=== PATIENT | male | born 1990 | race Caucasian/White ===

== ENCOUNTER 2022-03-14 10:38 | Emergency (ER) | payer BC, SELFPAY ==
[2022-03-14 10:47] VITALS: BP 124/75; PULSE 71; RESP 16; TEMP 36.9; O2SAT 100
--- NOTE | 2022-03-14 11:10 | ED.GENADULT ---
HPI - General Adult General Chief complaint: Upper Respiratory Infection Stated complaint: work note, covid symptoms Time Seen by Provider: 03/14/22 11:10 Source: patient, RN notes reviewed and old records reviewed Mode of arrival: ambulatory Limitations: no limitations History of Present Illness HPI narrative: 32year old male who presets to express care with complaints of lingering cough post COVID and need for release to return to work Patient reports that he had COVID on March 01 and he has quarantined as per CDC guidelines and has been fever free since the 06 of March. Patient states that he has some nasal congestion and this lingering cough and need release so he can return to work. Patient denies any shortness of breath, wheezing, fevers, sore throat or any ear pain. Patient reports that he has been taking some DayQuil and NyQuil for his symptoms. MD complaint: needs note to return to work, had COVID March 01 has lingering cough Onset (ago): day(s) (March 01) Treatments prior to arrival: other (DayQuil and NyQuil) Related Data Home Medications Medication Instructions Recorded Confirmed ocrelizumab 30 mg/mL intravenous 30 mg IV [id number] 03/14/22 03/14/22 solution (Ocrevus) Allergies Allergy/AdvReac Type Severity Reaction Status Date / Time red dye Allergy Unknown Verified 03/14/22 10:50 Review of Systems Review of Systems: CONSTITUTIONAL: Denies fever, chills, or sweats. EYES: Denies visual changes, redness, or discharge. ENT: Positive for rhinorrhea, congestion, no sore throat, or otalgia. CARDIOVASCULAR: Denies chest pain, palpitations, or edema. RESPIRATORY: Positive for dry cough denies dyspnea. GASTROINTESTINAL: Denies abdominal pain, nausea, vomiting, or diarrhea. GENITOURINARY: Denies dysuria or hematuria. SKIN: Denies rash or itching. MUSCULOSKELETAL: Denies back pain, joint pain, present myalgia. NEUROLOGIC: Denies headache, numbness, or weakness. PSYCHIATRIC: Denies anxiety or depression. 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 There is no relevant family history pertinent to the presenting complaint Exam Narrative: GENERAL: Well-appearing, well-nourished, and in no acute distress. HEAD: Normocephalic, atraumatic. EYES: PERRLA and EOMI. ENT: Nares with membranes red, clear rhinorrhea no epistaxis. Mucous membranes moist.TM's normal with good light reflex, throat with some mild erythema no lesions or exudates noted, tonsils not enlarged or swollen, post nasal drainage noted NECK: Supple. no lymphadenopathy CHEST: Clear to auscultation. No respiratory distress.persistent cough,SAO2 100% on room air, no tachypnea or wheezing noted HEART: Regular rate and rhythm. No murmur heard. Normal peripheral pulses. ABDOMEN: Soft, nontender, nondistended, normal active bowel sounds. EXTREMITIES: Normal range of motion. No edema. SKIN: Warm, dry, no rash. NEURO: No focal deficits. Alert and oriented x3. Course Course Level of Care: Express Care Visit Vital Signs Vital signs: Vital Signs Temperature 36.9 C 03/14/22 10:47 Pulse Rate 71 03/14/22 10:47 Respiratory Rate 16 03/14/22 10:47 Blood Pressure 124/75 03/14/22 10:47 Pulse Oximetry 100 03/14/22 10:47 Temperature 36.9 C 03/14/22 10:47 Pulse Rate 71 03/14/22 10:47 R
== END 2022-03-14 11:36 | disposition home or self-care (01) ==
PROVIDERS: Emergency Provider Registered Nurse
DX: J06.9 Acute upper respiratory infection, unspecified (principal); R05.2 Subacute cough; G35 Multiple sclerosis
CPT/HCPCS: 99213; G0463

== ENCOUNTER 2023-01-18 08:46 | Emergency (ER) | payer BC, SELFPAY ==
--- NOTE | 2023-01-18 08:51 | ED.URI ---
HPI - URI/Sore Throat General Chief Complaint: Upper Respiratory Infection Stated Complaint: Cough for a year & a half Time Seen by Provider: 01/18/23 09:58 Source: patient and RN notes reviewed Mode of arrival: ambulatory Limitations: no limitations History of Present Illness HPI Narrative: 32-year-old male with history of multiple sclerosis presents with concern for cough, sinus congestion, sinus pain. He reports for year and a half he has had on and off problems with cough and sinuses. Reports this flare has been about 2 months. He reports he has been taking multiple [id number] medications without relief of his symptoms. He reports his sinus pain worsens with cough. He reports he has an albuterol inhaler from a previous illness that he has been using about twice a week. He reports it helps for several hours. He reports feeling warm, has not measured a fever. MD elicited complaint: cough, nasal congestion and sinus pain Related Data Home Medications Medication Instructions Recorded Confirmed ocrelizumab 30 mg/mL intravenous 30 mg IV [id number] 03/14/22 01/18/23 solution (Ocrevus) Allergies Allergy/AdvReac Type Severity Reaction Status Date / Time red dye Allergy Intermediate Hives Verified 01/18/23 10:04 Review of Systems Review of Systems: CONSTITUTIONAL: Denies malaise, chills,, or fever. Reports sweats EYES: Denies visual changes, redness, or discharge. ENT: Reports rhinorrhea, congestion, sinus pain. Reports denies otalgia and sore throat. CARDIOVASCULAR: Denies chest pain, palpitations, or edema. RESPIRATORY: Reports persistent cough. Denies dyspnea. GASTROINTESTINAL: Denies abdominal pain, nausea, vomiting, diarrhea SKIN: Denies rash or itching. MUSCULOSKELETAL: Denies myalgia. NEUROLOGIC: Denies headache. 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 There is no relevant family history pertinent to the presenting complaint Exam Narrative: GENERAL: Well-appearing, well-nourished, and in no acute distress. HEAD: Normocephalic EYES: PERRLA, conjunctivae clear ENT: Nares clear, turbinates edematous and erythematous, sinus tenderness. Mucous membranes moist. TM pearly souza with dull light reflex bilaterally; no tragal tenderness. Oropharynx not erythematous without lesions. Tonsils not enlarged and without exudate, no drooling, no hoarseness, no trismus, uvula midline. NECK: Supple. No lymphadenopathy CHEST: Scattered wheeze otherwise clear to auscultation, breath sounds equal. No rhonchi, rales, or stridor. No respiratory distress, speaks in full sentences. HEART: Regular rate and rhythm. No murmur heard. SKIN: Warm, dry, no rash. NEURO: Alert and oriented x3. PSYCH: Normal mood and affect Course Course Emergency Course: Patient advised he is allergic to red dye 5. Which is commonly found food and not medication, he is not allergic to red dye 10 which is found medication. He reports he has taken Augmentin without problems. He reports he has intermittently had to be on prednisone for his lungs well he is taking the Ocrevus, he understands increased risk of infection. Patient is aware of diagnosis, understands and agrees to treatment plan. Anticipatory guidance give
[2023-01-18 09:01] VITALS: BP 123/65; PULSE 103; RESP 16; TEMP 37.4; O2SAT 97
[2023-01-18] MEDS: IPRATROPIUM BR 0.02% INH SOLN 0.5 MG/2.5 ML VIAL INHALATION (10:19)
[2023-01-18] MEDS: ALBUTEROL SULFATE NEB 2.5 MG/3 ML INH INHALATION (10:19)
== END 2023-01-18 11:04 | disposition home or self-care (01) ==
PROVIDERS: Emergency Provider Nurse Practitioner; PCP Family Medicine
DX: J32.9 Chronic sinusitis, unspecified (principal); J40 Bronchitis, not specified as acute or chronic; G35 Multiple sclerosis
CPT/HCPCS: 94640; 99213; G0463

== ENCOUNTER 2023-04-20 08:05 | Outpatient (CLI) | payer BC, SELFPAY ==
--- NOTE | ~2023-04-20 | CT_ITS ---
CT Scan of the Chest without Contrast: Clinical Indication: Cough Technique: Contiguous sections were acquired throughout the chest without intravenous contrast. Dose reduction technique was used on this scan by utilizing automated exposure control and iterative recon struction technique. The dose-length product (DLP) was 335.12 mGy-cm. Findings: There is no evidence of any significant mediastinal, hilar or axillary lymphadenopathy. The mediastin al soft tissues appear normal. There is no evidence of pleural or pericardial effusion. 4 mm left lower lobe pulmonary nodule noted (axial image 79). Lungs are otherwise clear. Images through the upper abdomen reveal no abnormalities. Impression: 4 mm left lower lobe pulmonary nodule. According to Fleischner Society criteria, for a low-risk patie nt, no further follow-up required. For a high-risk patient, consider 12 month follow-up CT. Reviewed, dictated and finalized at [facility]. Impression: 4 mm left lower lobe pulmonary nodule. According to Fleischner Society criteria , for a low-risk patient, no further follow-up required. For a high-risk patien t, consider 12 month follow-up CT.
--- NOTE | 2023-04-20 17:12 | WPDPFTINT ---
PFT Procedure Performed PFT Procedure Performed Spirometry with Pre/Post Bronchodilator Plethysmography (Lung Vol) Diffusing Cap (DLCO) Flow Vol Loop PFT Interpretation DOS: 04/20/2023 REQUESTING: Tory Mota PA-C REASON FOR TESTING: Cough PULMONARY FUNCTION TESTS Results are reliable and reproducible. Spirometry: [ ] Lung volumes: [ ] Diffusion: DLCO [ ] Flow volume loop: [ ] IMPRESSION: [ ] Leila Marroquin MD
--- NOTE | 2023-04-21 12:34 | WPDPFTINT ---
PFT Procedure Performed PFT Procedure Performed Spirometry with Pre/Post Bronchodilator Plethysmography (Lung Vol) Diffusing Cap (DLCO) Flow Vol Loop PFT Interpretation DOS: 04/20/2023 REQUESTING: Tory Mota PA-C REASON FOR TESTING: Cough PULMONARY FUNCTION TESTS Results are reliable and reproducible. Spirometry: Pre bronchodilator FEV1 is 4.16 L, 98%, normal. Pre bronchodilator FVC is 5.23 L, 101% predicted, normal. FEV1/FVC ratio 79%, normal. After bronchodilator administration there is a 3% increase in the FEV1, 4.27 L which is 101%, not statistically significant. There is a 4% increase in the FVC, 5.43 L, 101% predicted, normal. Lung volumes: Total lung capacity is 6.7 L, 100% predicted, normal. Residual volume is 1.31 L, 80%, normal. RV/ TLC is 20%, normal. Diffusion: DLCO is 28.6, 84%, normal. DLCO/VA is 4.18, 82%, normal. Flow volume loop: There was one normal loop; one repeat efforts, the inspiratory limb became progressively smaller. IMPRESSION: This study shows normal spirometry without response to bronchodilator, normal lung volumes, normal diffusion. The inspiratory limb on the FVL became smaller on repeat efforts. Clinically correlation recommended. Leila Marroquin MD
== END 2023-04-20 08:06 | disposition home or self-care (01) ==
PROVIDERS: PCP Family Medicine; Visit Provider Physician Assistant
DX: R05.9 Cough, unspecified (principal); R91.1 Solitary pulmonary nodule
CPT/HCPCS: 71250; 94060; 94726; 94729

== ENCOUNTER 2024-10-01 15:12 | Emergency (ER) | payer OTHER, SELFPAY ==
--- NOTE | 2024-10-01 15:27 | ED.URI ---
HPI - URI/Sore Throat General Chief Complaint: Skin/Abscess/Foreign Body Stated Complaint: rt earache, rash Time Seen by Provider: 10/01/24 15:15 Source: patient Mode of arrival: ambulatory Limitations: no limitations History of Present Illness HPI Narrative: Patient is a 34-year-old male that presents with 3-4 days of right ear pain, decreased hearing along with rash right side of head this started last night. Patient reports it is mildly itchy but does not say that it is painful. Rash is not open or oozing. Patient has history of MS and did have chickenpox as a child. Related Data Home Medications ?Medication ?Instructions ?Recorded ?Confirmed ?Last Taken ?Type cholecalciferol (vitamin D3) 125 125 mcg PO DAILY 06/26/23 07/21/23 Unknown History mcg (5,000 unit) capsule Allergies Allergy/AdvReac Type Severity Reaction Status Date / Time red dye Allergy Intermediate Hives Verified 10/01/24 15:42 Review of Systems Review of Systems: All systems reviewed & are unremarkable except as noted in HPI and below Constitutional: Constitutional: Denies body ache(s), Denies chills, Denies fatigue, Denies fever(s), Denies headache(s), Denies malaise and Denies weakness Eyes: Eyes: Denies blurry vision, Denies irritation and Denies loss of vision ENT: Reports otalgia, Denies headache(s), Denies nasal discharge, Denies sinus pain and Denies sore throat Cardiovascular: Cardiovascular: Denies chest pain, Denies irregular heart rhythm and Denies dyspnea Respiratory: Respiratory: Denies dyspnea Gastrointestinal: Gastrointestinal: Denies abdominal pain, Denies melena, Denies hematochezia, Denies diarrhea, Denies nausea and Denies vomiting Musculoskeletal: Musculoskeletal: Denies back pain, Denies myalgias and Denies arthralgias Integumentary/Breasts: Skin/Breast: Reports pruritus and Reports rash Neurologic: Denies headache(s), Denies loss of vision and Denies weakness Psychiatric: Psychiatric: Reports no additional psychiatric complaints Endocrine: Endocrine: Denies fatigue PMFSH Past Medical History Medical History 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, left resolved after starting treatment for MS Multiple sclerosis Surgical History Surgical History No history of previous surgery Family History Family History Grandparent Heart disease 2 quadruple bypass surgeries Hypertension Other Hypertension Mother Enlarged RV (right ventricle) Grandparent Hypertension Father Hypertension Social History Social History Smoking status: Never smoker Alcohol intake: current Alcohol use details: rare social Substance use: never Substance use type: does not use Lack of Transportation: No Lack of Food: Never True Current Housing: I Have Housing Concerned About Future Housing: No Difficulty Paying Gas/Electric Bills: No Difficulty Paying for Meds: No Currently Unemployed: No Education: Bachelor's Degree Living arrangements: with family Occupation/Education: occupation Additional occupation/education comments: District executive for [employer] Gender identity (if verbalized by the patient): Male Comments At time of signature, agree with nursing past medical, surgical, social and family history. There is no relevant family history pertinent to the presenting complaint. Exam Const: General: cooperative, healthy appearing, comfortable, no acute distress and well nourished Nutritional Appearance: well nourished Orientation/consciousness: patient oriented x3 Limitations: no limitations HENMT: Head: normal to inspection, normocephalic, atraumatic and scalp lesion right parietal vesicle (multiple grouped vesicles in different stages. Some small and red, others 1 cm in size with raised surface and start of blister appearance) Head images:  1. area of grouped vesicles Ears: hearing grossly normal bilaterally, external ears normal, TM's normal bilaterally, EAC's normal and no periauricular adenopathy Face/Nose/Sinus: Normal external nose present, normal facial exam and face symmetric Face and sinus: normal facial exam and face symmetric Mouth: Yes lip normal Eyes: General: appearance normal, both eyes and all related structures Alignment and Position: alignment normal and position normal Periorbital: periorbital findings normal Eyelids: eyelids normal Pupils: Equal, round and reactive pupils present EOM: EOMs intact bilaterally Neck: Neck: normal visual inspection, full ROM and supple Chest: Chest palpation & inspection: normal inspection of the chest Resp: Effort & Inspection: normal respiratory effort and able to speak in complete sentences Auscultation: clear to auscultation bilaterally Cardio: Rate: regular rate Rhythm: regular rhythm Heart sounds: S1 normal heart sound present and S2 normal heart sound present GI: Inspection: normal to inspection Skin: General skin exam: normal color and no rashes or lesions noted Neuro: General: patient oriented x3 and moves all extremities Cranial nerves: Yes Equal, round and reactive pupils present Speech: normal speech Gait exam (Neuro): Normal gait present Extrem: General: normal to inspection, full ROM and no edema Psych: Appearance: grossly normal and well kempt Mental Status: mental status grossly normal Speech and movement: Normal speech and movement present Affect: normal affect Attitude: cooperative Thought process: Normal thought process present Course Course Emergency Course: Patient is aware of diagnosis, understands and agrees to treatment plan. Anticipatory guidance given. Patient agrees to follow-up as directed and is aware of reasons to seek care at the emergency department. Portions of this record may have been created with voice recognition software Level of Care: Express Care Visit Vital Signs Vital signs: Vital Signs Temperature 36.2 C L 10/01/24 15:30 Pulse Rate 62 10/01/24 15:30 Respiratory Rate 18 10/01/24 15:30 Blood Pressure 118/75 10/01/24 15:30 Pulse Oximetry 98 10/01/24 15:30 Oxygen Delivery Room Air 10/01/24 15:30 Temperature 36.2 C L 10/01/24 15:30 Pulse Rate 62 10/01/24 15:30 Respiratory Rate 18 10/01/24 15:30 Blood Pressure 118/75 10/01/24 15:30 Pulse Oximetry 98 10/01/24 15:30 Oxygen Delivery Room Air 10/01/24 15:30 Reviewed MDM - URI/Sore Throat MDM Narrative Medical decision making narrative: Patient has a history of MS but states he has no history of kidney impairment. Patient has a 6-month-old at home and discussed limiting contact with child for the next 24-48 hours. Patient has PCP appointment with new doctor 10/27. There is no signs of damage or infection that would cause decreased hearing in ear. Pt well hydrated appearing, in no respiratory distress, hemodynamically stable. Recommend supportive care. The patient is stable at time of discharge the clinical impression was discussed and the patient was given the opportunity to ask questions, which were addressed as completely as possible given the information available at present. Anticipatory guidance and return to care precautions were discussed and the importance of primary care follow-up was stressed and encouraged. The patient voiced understanding of the plan, indications to return, and the need for follow-up. Exam findings show no acute concerns or changes Patient is appropriate for outpatient treatment and follow-up. Differential Diagnosis Differential diagnosis: Likely other (Shingles, cellulitis, fungal infection, folliculitis) Medical Records Attestation: I reviewed the patient's medical records. Discharge Plan Discharge Clinical Impression: Herpes zoster Qualifiers: Herpes zoster complications: without complications Qualified Code(s): B02.9 - Zoster without complications Patient Disposition: Home, Self-Care Condition: Stable Instructions: Shingles (ED) Additional Instructions: For pain, you may take: Tylenol 650-1000mg by mouth every 4-6 hours. Do not exceed 4000mg in 24 hours. Advil (Ibuprofen) 600 mg by mouth every 6 hours. Do not exceed 2400mg in 24 hours. 8 AM: Tylenol 11 AM: Ibuprofen 2 PM: Tylenol 5 PM: Ibuprofen 8 PM: Tylenol 11 PM: Ibuprofen 2 AM: Tylenol 5 AM: Ibuprofen take antiviral medicine as prescribed. Shingles pain can last weeks, sometimes months. If your pain persists after antiviral medication is complete please follow-up with your primary care provider for a long-term pain control plan. Follow-up with your doctor in the next 2 to 3 days. Children do not get chicken pox vaccine until 15 months. Try to avoid contact with child for 24 hours. Go to the emergency room if you have any urgent concerns. Patient Language: Tajik Prescriptions: New valacyclovir 1 gram tablet 1,000 mg PO TID 7 Days Qty: 21 0RF No Action cholecalciferol (vitamin D3) 125 mcg (5,000 unit) capsule 125 mcg PO DAILY Follow-up/Referrals: PHYSICIAN,PROCESSING SUPERVISOR [Primary Care Provider] - Latasha Cartagena DO [Physician] - 3 Days Stand Alone Forms: Work/School Release IP Time of Disposition: 16:34
[2024-10-01 15:30] VITALS: BP 118/75; PULSE 62; RESP 18; TEMP 36.2; O2SAT 98
== END 2024-10-01 16:40 | disposition home or self-care (01) ==
PROVIDERS: Emergency Provider Nurse Practitioner Family
DX: B02.9 Zoster without complications (principal); G35 Multiple sclerosis
CPT/HCPCS: 99213; G0463